=== PATIENT | male | born 2005 | race Hispanic/Latino ===

== ENCOUNTER 2025-02-03 20:34 | Emergency (ER) | payer OTHER, SELFPAY ==
[2025-02-03 21:06] VITALS: BP 147/106; PULSE 82; RESP 16; TEMP 36.8; O2SAT 99
--- NOTE | 2025-02-04 01:43 | ED_ITS ---
HPI - General Adult General Chief complaint: Ear <YARY Pickard - Last Filed: 02/04/25 03:11> Stated complaint: R ear pain <YARY Pickard - Last Filed: 02/04/25 03:11> Time Seen by Provider: 02/03/25 23:46 <YARY Pickard - Last Filed: 02/04/25 03:11> History of Present Illness HPI narrative: 20-year-old male presenting with right ear pain that began 2 days ago. He states that he tried to place hydrogen peroxide in his ear that had no improvement in his pain. He also reports obtaining pills from his [employer] store which included amoxicillin and a formulation of Maxitrol drops. He states he took doses for yesterday and today only without relief. Today he is reporting a decrease in hearing, tinnitus, and intermittent sharp pain that radiates into his jaw. He states that he had a fever of 102 yesterday but that has since res olved. He denies nasuea/vomiting, headaches, dizziness, or visions changes. <YARY Pickard - Last Filed: 02/04/25 03:11> Related Data Allergies/adverse reactions: Allergies Allergy/AdvReac Type Severity Reaction Status Date / Time No Known Allergies Allergy Verified 02/03/25 20:35 <YARY Pickard - Last Filed: 02/04/25 03:11> Review of Systems Review of Systems: All systems reviewed & are unremarkable except as noted in HPI and below <YARY Pickard - Last Filed: 02/04/25 03:11> Exam Narrative: GENERAL: Well-appearing, well-nourished, and in no acute distress. HEAD: Normocephalic, atraumatic. EYES: PERRLA and EOMI. ENT: Nares clear, no rhinorrhea or epistaxis. Mucous membranes moist. Oropharynx without tonsillar hypertrophy exudate or other lesions. Right external ear canal erythema and edema. Uncertainty of purulence vs. cerumen. NECK: Supple. No adenopathy or masses. No carotid bruits or JVD CHEST: Clear to auscultation. No respiratory distress. No wheezes rales or rhonchi HEART: Regular rate and rhythm. No murmur heard. Normal peripheral pulses. ABDOMEN: Soft, nontender, nondistended, normal active bowel sounds. EXTREMITIES: Normal range of motion. No edema. SKIN: Warm, dry, no rash. NEURO: No focal deficits. Alert and oriented x3. PSYCH: Normal mood and affect <YARY Pickard - Last Filed: 02/04/25 03:11> Course ACTUARIAL SCIENCE TEACHER/PA Physician Supervision This visit was performed by both a physician and an APC. I performed all aspects of the MDM as documented. <Magdaleno Sampson MD - Last Filed: 02/04/25 04:09> Vital Signs Vital signs: Vital Signs Temperature 98.2 F 02/03/25 21:06 Pulse Rate 82 02/03/25 21:06 Respiratory Rate 16 02/03/25 21:06 Blood Pressure 147/106 H 02/03/25 21:06 Pulse Oximetry 99 02/03/25 21:06 Oxygen Delivery Room Air 02/03/25 21:06 Temperature 98.2 F 02/03/25 21:06 Pulse Rate 82 02/03/25 21:06 Respiratory Rate 16 02/03/25 21:06 Blood Pressure 147/106 H 02/03/25 21:06 Pulse Oximetry 99 02/03/25 21:06 Oxygen Delivery Room Air 02/03/25 21:06 <YARY Pickard - Last Filed: 02/04/25 03:11> Vital Signs Temperature 98.2 F 02/03/25 21:06 Pulse Rate 82 02/03/25 21:06 Respiratory Rate 16 02/03/25 21:06 Blood Pressure 147/106 H 02/03/25 21:06 Pulse Oximetry 99 02/03/25 21:06 Oxygen Delivery Room Air 02/03/25 21:06 Temperature 98.2 F 02/03/25 21:06 Pulse Rate 82 02/03/25 21:06 Respiratory Rate 16 02/03/25 21:06 Blood Pressure 147/106 H 02/03/25 21:06 Pulse Oximetry 99 02/03/25 21:06 Oxygen Delivery Room Air 02/03/25 21:06 <Magdaleno Sampson MD - Last Filed: 02/04/25 04:09> MDM MDM Narrative Medical decision making narrative: 20-year-old male presenting with right ear pain that began 2 days ago. He states that he tried to place hydrogen peroxide in his ear that had no improvement in his pain. He also reports obtaining pills from his [employer] store which included amoxicillin and a formulation of Maxitrol drops. He states he took doses for yesterday and today only without relief. Today he is reporting a decrease in hearing, tinnitus, and intermittent sharp pain that radiates into his jaw. He states that he had a fever of 102 yesterday but that has since resolved. He denies nasuea/vomiting, headaches, dizziness, or visions changes. Upon my initial assessment, patient appears nontoxic and is afebrile with stable vitals. Examination of his right ear demonstrated edema and erythema of his external ear canal. The canal swelling is minimal enough for drops to be able to reach the TM without obstruction. Due to the patient's anatomy and edema I was unable to visualize his TM. Exam notable for tenderness of the tragus and pain with pinna manipulation consistent with otitis externa. Due to not being able to visualize the middle ear, the plan is to discharge with treatment for both otitis externa and otitis media. Patient reports sufficient pain control with Tylenol and anti-inflammatories. All questions were answered to the patient's satisfaction. The patient is appropriate for outpatient treatment and follow- up. Given reasons to return. <YARY Pickard Last Filed: 02/04/25 03:11> Differential Diagnosis Differential Diagnosis: otitis media, otitis externa, viral infection, foreign body, barotrauma, TM perforation, allergies, mastoiditis, cholesteatoma <YRAY Pickard Last Filed: 02/04/25 03:11> Discharge Plan Discharge Clinical Impression: Otitis externa <YARY Pickard Last Filed: 02/04/25 03:11> Patient Disposition: Home <YARY Pickard Last Filed: 02/04/25 03:11> Condition: Stable <YARY Pickard Last Filed: 02/04/25 03:11> Instructions: Antibiotic Form, Ear Infection (ED), Earache (ED) <YARY Pickard Last Filed: 02/04/25 03:11> Patient Language: Slovenian <YARY Pickard - Last Filed: 02/04/25 03:11> Prescriptions: New ciprofloxacin-dexamethasone 0.3-0.1 % drops,suspension 4 drp RIGHT EAR Q12H 7 Days Qty: 7.5 0RF amoxicillin 500 mg tablet 500 mg PO TID Qty: 21 0RF <YARY Pickard - Last Filed: 02/04/25 03:11> Follow-up/Referrals: Acosta Wilde MD [Physician, Family Practice] PHYSICIAN,DRAPERY SUPERVISOR [Primary Care Provider, Internal Medicine] <YARY Pickard - Last Filed: 02/04/25 03:11>
== END 2025-02-04 00:33 | disposition home or self-care (01) ==
DX: H60.91 Unspecified otitis externa, right ear (principal)
CPT/HCPCS: 99283